=== PATIENT | female | born 1955 | race African-American/Black ===

== ENCOUNTER 2023-01-01 10:01 | Emergency (ER) | payer SELFPAY ==
[2023-01-01] MEDS ORDERED: SODIUM CHLORIDE 0.9% 500 ML INFUS.BAG IV ONE ×2 (10:31)
[2023-01-01 11:00] VITALS: TEMP 99.2; BMI 24.2
[2023-01-01 11:39] LABS: INR 1.03 (0.83-1.09)
[2023-01-01 11:42] LABS: ACTIVATED PTT 22.4 SECONDS (25.2-36.5)
[2023-01-01 11:49] LABS: POTASSIUM 4.7 mmol/L (3.5-5.1)
[2023-01-01 11:54] LABS: BLOOD UREA NITROGEN 35.6 mg/dL (7-18)
[2023-01-01 11:56] LABS: CREATININE 1.2 mg/dL (0.55-1.3)
[2023-01-01 11:58] LABS: BILIRUBIN,TOTAL 3.7 mg/dL (0.2-1)
[2023-01-01 11:59] LABS: HEMATOCRIT 30.1 % (32.4-45.2); HEMOGLOBIN 10.1 GM/dL (10.7-15.3); MCH 26.7 pg (25.7-33.7); MCHC 33.7 g/dl (32.0-36.0); MEAN CELL VOLUME 79.3 fl (80-96); MEAN PLT VOLUME 7.7 fl (7.5-11.1); PLATELET COUNT 165 10^3/uL (134-434); RBC 3.79 M/mm3 (3.60-5.2); WHITE BLOOD COUNT 19.8 K/mm3 (4.0-10.0)
[2023-01-01] MEDS ORDERED: VANCOMYCIN 1,000 MG in DEXTROSE 5%-WATER - 250 ML IVPB ONE (12:07)
[2023-01-01] MEDS ORDERED: PIPERACILLIN/TAZOB 4.5 GM 4.5 GM in DEXTROSE 5%-WATER 100 ML IVPB ONE (12:07)
[2023-01-01] MEDS ORDERED: PIPERACILLIN/TAZOB 4.5 GM 4.5 GM/100 ML BAG IVPB ONE (12:14)
[2023-01-01] MEDS ORDERED: VANCOMYCIN 1 GRAM (PRE-DOCKED) 1,000 MG/250 ML BAG IVPB ONE (12:14)
[2023-01-01 12:29] LABS: ANISOCYTOSIS 3+; CORRECTED WBC 14.78 K/mm3; MACROCYTOSIS 1+; TARGET CELLS 2+
[2023-01-01 13:01] LABS: URINE APPEARANCE CLEAR; URINE BILIRUBIN NEGATIVE (NEGATIVE); URINE COLOR YELLOW; URINE GLUCOSE (UA) NEGATIVE (NEGATIVE); URINE KETONE NEGATIVE (NEGATIVE); URINE LEUK ESTERASE NEGATIVE (NEGATIVE); URINE NITRITE NEGATIVE (NEGATIVE); URINE PROTEIN NEGATIVE (NEGATIVE)
[2023-01-01 15:13] VITALS: RESP 18
[2023-01-01 17:24] VITALS: BP 136/68; PULSE 86
== END 2023-01-01 17:33 | disposition short-term general hospital (02) ==
LOC: JER 10:01
PROC: 3E03329 Introduction of Other Anti-infective into Peripheral Vein, Percutaneous Approach (ICD-10-PCS; principal; 2023-01-01)
PROC: 3E03329 Introduction of Other Anti-infective into Peripheral Vein, Percutaneous Approach (ICD-10-PCS; 2023-01-01)
PROC: 3E033GC Introduction of Other Therapeutic Substance into Peripheral Vein, Percutaneous Approach (ICD-10-PCS; 2023-01-01)
DX: R53.1 Weakness (principal); L97.119 Non-pressure chronic ulcer of right thigh with unspecified severity; H57.13 Ocular pain, bilateral; H54.0X33 Blindness right eye category 3, blindness left eye category 3; D72.829 Elevated white blood cell count, unspecified; T79.6XXA Traumatic ischemia of muscle, initial encounter; L89.211 Pressure ulcer of right hip, stage 1
CPT/HCPCS: 0241U-QW; 70450-TC; 71045-TC-FY; 71260-TC; 72125-TC; 72170-TC-FY; 74177-TC; 80053; 81003; 82550; 82553; 83605; 84443; 84484; 85025; 85610; 85730; 86850; 86900; 86901; 87040; 87086; 93005; 93010; 99285-25; Q9967